=== PATIENT | male | born 1985 | race Two or more races ===

== ENCOUNTER 2016-05-21 03:32 | Emergency (ER) | payer SELFPAY ==
[~2016-05-21] VITALS: Ht 170.2 cm; Wt 77.1 kg
[2016-05-21] MEDS ORDERED: UNOBMED (03:37)
--- NOTE | 2016-05-21 03:49 | Emergency Room Report ---
History of Present Illness General Chief Complaint: Alcohol Intoxication Source: Patient, EMS Present Illness HPI This is a 31-year-old male who was wandering in the street and in people yard. He was drinking heavily today. Someone called 911. He was uncooperative so he came in with police assistance. Denies any complaint. Denies suicidal thought homicidal thought. not cooperating. Denies any drug use. Admits to alcohol. Allergies: Coded Allergies: UNABLE TO ASSESS (Unverified , 05/21/16) Patient History Past Medical History: see triage record, old chart reviewed Past Surgical History: unable to obtain Pertinent Family History: unable to obtain Social History: Reports: alcohol use Immunizations: other Reviewed Nursing Documentation: PMH: Agreed, PSxH: Agreed Nursing Documentation-PMH Past Medical History Deferred: Pt Cognitively Impaired Review of Systems Eye: Denies: blurred vision, eye pain ENT: Denies: ear pain, nose congestion, throat swelling Respiratory: Denies: cough, shortness of breath Cardiovascular: Denies: chest pain, palpitations Gastrointestinal: Denies: abdominal pain, diarrhea, nausea, vomiting Musculoskeletal: Denies: back pain, joint pain Skin: Denies: rash Neurological: Denies: headache, numbness Endocrine: Denies: increased thirst, increased urine Hematologic/Lymphatic: Denies: easy bruising All Other Systems: limited - Secondary to intoxication Physical Exam Vital Signs Date Time Temp Pulse Resp B/P Pulse Ox O2 Delivery O2 Flow Rate FiO2 05/21/16 03:18 100 18 132/90 98 Room Air vitals normal Sp02 EP Interpretation: reviewed, normal General Appearance: well appearing, no apparent distress, alert, other - Intoxicated Head: normocephalic, atraumatic Eyes: bilateral eye EOMI, bilateral eye PERRL ENT: hearing grossly normal, normal pharynx Neck: full range of motion, supple, no meningismus Respiratory: chest non-tender, lungs clear, normal breath sounds Cardiovascular #1: regular rate, rhythm, no murmur Gastrointestinal: normal bowel sounds, non tender, no mass, no organomegaly, no bruit, non-distended Musculoskeletal: back normal, normal range of motion Psychiatric: other - Agitated. Yelling. Skin: warm/dry Medical Decision Making Diagnostic Impression: Primary Impression: Acute alcoholic intoxication Qualified Codes: F10.120 - Alcohol abuse with intoxication, uncomplicated ER Course Pt presents with alcohol intoxication. No trauma. He was uncooperative and combative. Had to be sedated. Slept through the night. Once clinically sober, will dc home. Last Vital Signs Date Time Temp Pulse Resp B/P Pulse Ox O2 Delivery O2 Flow Rate FiO2 05/21/16 03:18 100 18 132/90 98 Room Air Status: improved Disposition: HOME, SELF-CARE Condition: Stable Patient Instructions: Alcohol Intoxication, [id number] Additional Instructions: Abstain from drugs and alcohol. Follow up with rehab. Follow up with your doctor in 7 days. Return if worse. ELISSA BALDERRAMA M.D. May 21, 2016 03:49
[2016-05-21] MEDS ORDERED: Haloperidol 5mg/ml Inj IM ONE (04:00)
[2016-05-21 05:46] VITALS: BP 108/71
[2016-05-21 09:00] VITALS: BP 110/75
[2016-05-21 09:48] VITALS: BP 110/75
== END 2016-05-21 09:48 | disposition home or self-care (01) ==
LOC: EDBD 03:32 → EMR 03:49
DX: F10.120 Alcohol abuse with intoxication, uncomplicated (principal)
CPT/HCPCS: 96372; 99284; J1630